=== PATIENT | female | born 1985 | race Caucasian/White ===

== ENCOUNTER 2019-04-24 09:19 | Outpatient (CLI) | payer OTHER, SELFPAY ==
--- NOTE | 2019-04-24 11:00 | NEURO_ITS ---
Patient Number: [id number] Impression: # Complains of pain and discomfort in upper extremities. # Bilateral ulnar neuropathy across the elbows. # Evolving Carpal Tunnel Syndrome. # Normal needle/EMG exam. Nerve Conduction Studies Anti Sensory Summary Table Stim Site NR Peak (ms) P-T Amp (?V) Site1 Site2 Delta-P (ms) Dist (cm) Curt (m/s) Left Median Anti Sensory (2-3nd Digit) Wrist 3.5 74.5 Wrist 2-3nd Digit 3.5 14.0 40 Wrist 3.3 71.5 Wrist 2-3nd Digit 3.5 14.0 40 Right Median Anti Sensory (2-3nd Digit) Wrist 2.9 74.2 Wrist 2-3nd Digit 2.9 14.0 48 Wrist 2.8 69.7 Wrist 2-3nd Digit 2.9 14.0 48 Left Radial Anti Sensory (Base 1st Digit) Wrist 2.0 31.4 Wrist Base 1st Digit 2.0 0.0 Right Radial Anti Sensory (Base 1st Digit) Wrist 2.1 24.6 Wrist Base 1st Digit 2.1 0.0 Left Ulnar Anti Sensory (5th Digit) Wrist 2.6 75.0 Wrist 5th Digit 2.6 14.0 54 Right Ulnar Anti Sensory (5th Digit) Wrist 2.2 60.7 Wrist 5th Digit 2.2 14.0 64 Motor Summary Table Stim Site NR Onset (ms) O-P Amp (mV) Site1 Site2 Delta-0 (ms) Dist (cm) Curt (m/s) Left Median Motor (Abd Poll Brev) Wrist 3.8 1.1 Elbow Wrist 5.2 28.0 54 Elbow 9.0 0.6 Right Median Motor (Abd Poll Brev) Wrist 3.4 4.2 Elbow Wrist 4.9 29.0 59 Elbow 8.3 3.3 Left Ulnar Motor (Abd Dig Minimi) Wrist 2.7 5.1 A Elbow Wrist 6.8 30.0 44 A Elbow 9.5 2.2 B Elbow Wrist 4.6 24.0 52 B Elbow 7.3 6.0 Right Ulnar Motor (Abd Dig Minimi) Wrist 2.5 6.2 A Elbow Wrist 5.9 28.0 47 A Elbow 8.4 4.2 B Elbow Wrist 4.1 23.0 56 B Elbow 6.6 2.6 F Wave Studies NR F-Lat (ms) L-R F-Lat (ms) Left Median (Mrkrs) (Abd Poll Brev) 29.51 1.09 Right Median (Mrkrs) (Abd Poll Brev) 28.43 1.09 Left Ulnar (Mrkrs) (Abd Dig Min) 29.24 0.76 Right Ulnar (Mrkrs) (Abd Dig Min) 28.48 0.76 EMG Side Muscle Nerve Root Ins Act Fibs Amp Dur Recrt Comment Right 1stDorInt Ulnar C8-T1 Nml Nml Nml Nml Nml Right Ext Indicis Radial (Post Int) C7-8 Nml Nml Nml Nml Nml Right Ext Digitorum Radial (Post Int) C7-8 Nml Nml Nml Nml Nml Right BrachioRad Radial C5-6 Nml Nml Nml Nml Nml Right PronatorTeres Median C6-7 Nml Nml Nml Nml Nml Right Abd Poll Brev Median C8-T1 Nml Nml Nml Nml Nml Left 1stDorInt Ulnar C8-T1 Nml Nml Nml Nml Nml Left Ext Indicis Radial (Post Int) C7-8 Nml Nml Nml Nml Nml Left Ext Digitorum Radial (Post Int) C7-8 Nml Nml Nml Nml Nml Left BrachioRad Radial C5-6 Nml Nml Nml Nml Nml Left PronatorTeres Median C6-7 Nml Nml Nml Nml Nml Left Abd Poll Brev Median C8-T1 Nml Nml Nml Nml Nml Right ABD Dig Min Ulnar C8-T1 Nml Nml Nml Nml Nml Left ABD Dig Min Ulnar C8-T1 Nml Nml Nml Nml Nml MTDD
== END 2019-04-24 09:20 | disposition home or self-care (01) ==
PROVIDERS: PCP Family Medicine; Visit Provider Nurse Practitioner
DX: G56.00 Carpal tunnel syndrome, unspecified upper limb (principal); G62.9 Polyneuropathy, unspecified
CPT/HCPCS: 95886; 95911

== ENCOUNTER 2019-11-14 09:00 | Outpatient (RCR) | payer OTHER, SELFPAY ==
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
--- NOTE | 2019-10-24 09:26 | PCPTNOTE ---
Pt called and cancelled c/o in too much pain from last visit.
--- NOTE | 2019-10-31 08:55 | PCPTNOTE ---
Patient called & cancelled scheduled appointment this date due to having to take her son to the MD.
--- NOTE | 2019-11-05 08:53 | PCPTNOTE ---
Pt cancelled appt due to abscessed tooth. On antibiotics now.
--- NOTE | 2019-11-14 11:49 | PTOPEVAL ---
PHYSICAL THERAPY DISCHARGE SUMMARY Thank you for referring Carmelina Quintero to [facility].? Carmelina has been seen x 6 visits in PT with progress towards goals set. She is ready for transitioning to HEP. Will discharge Carmelina from PT at this time. I agree with Carmelina's discharge from PT. Referring Physician Date Admitting Provider: Attending Provider: Steffany Camp, MD Referring Provider: Steffany Camp, MD *PT Outpatient Evaluation Start: 10/18/19 08:14 Freq: Status: Active Protocol: Document 11/14/19 09:11 WENDY (Rec: 11/14/19 10:12 WENDY [email or web address]) Therapy Assessment Status Assessment Status Assessment Status Discharge Evaluation Information Problem Subjective Information Carmelina states that she has Query Text:As Reported By Patient/ purchased hand held massager Family which is really helping her discomfort. In addition, she also has hand held AISM type of device that she can use on sore muscles to help decrease her pain. She states she loves the ball - sits on it all of the time, does her stretches and exercises on it. Pain Assessment Timing of Pain Assessment Timing of Pain Assessment Assessment Pain Scale Pain Scale Used Numeric (1 - 10) Self Report Pain Assessment Lower Back Reported Pain Level 6 Lowest Pain Intensity 4 Greatest Pain Intensity 8 Pain Score Pain Score 6: Self Report Cervical and Lumbar ROM Lumbar ROM Lumbar Comments pelvis/sacrum level in standing, negative standing flexion test Palpation Assessment Palpation Palpation increase in trigger points/ tissue tension - lateral and anterior/lateral thighs and buttocks Increased tenderness with P-A mob to sacrum - symmetrical alignment present. General Exercise General Exercises Exercise Location core, hip Exercise Type Active Exercise Description 75 cm ball Query Text:Record Sets, Reps, - pelvic motions - side/side, Resistance, and Position front/back, CW/CCW - 15 reps ea - LAQ - 15 reps - improved stability - marching with over head punch - 15 reps - increased
== END 2020-01-01 12:51 | disposition home or self-care (01) ==
LOC: ANHPT 09:00
PROVIDERS: PCP Family Medicine; Referring Provider Family Medicine; Visit Provider Family Medicine
DX: M54.9 Dorsalgia, unspecified (principal)
CPT/HCPCS: 97014; 97110; 97140; 97162; G0283

== ENCOUNTER 2021-02-26 12:32 | Emergency (ER) | payer OTHER, SELFPAY ==
--- NOTE | ~2021-02-26 | XR_ITS ---
EXAMINATION: XR chest 2V DATE: 02/26/2021 13:14 INDICATION: Cough. TECHNIQUE: Frontal and lateral views of the chest were obtained. COMPARISON: Chest 2 views 12/12/2018 FINDINGS: The chest demonstrates clear lungs without pneumonia, pleural effusion, or pneumothorax. Th e heart size is normal. There is mild chronic anterior wedging of vertebral bodies at thoracolumbar j unction. There is internal fixation of left humerus. IMPRESSION: 1. No acute cardiopulmonary disease. Reviewed, dictated and finalized at location A. [facility]
[2021-02-26 12:43] VITALS: BP 123/77; PULSE 84; RESP 16; TEMP 35.8; O2SAT 95
--- NOTE | 2021-02-26 12:54 | ED.URI ---
HPI - URI/Sore Throat General Chief Complaint: Upper Respiratory Infection Stated Complaint: Cough Time Seen by Provider: 02/26/21 12:54 Source: patient, RN notes reviewed and old records reviewed History of Present Illness HPI Narrative: 35-year-old female presents to the [facility] with complaints of cough, sore throat, runny nose and chills. Patient states today is day 3. The cough however did not start until last night. Denies any chest pain or abdominal pain. No nausea vomiting or diarrhea. Related Data Home Medications Medication Instructions Recorded Confirmed duloxetine 60 mg PO DAILY 05/08/19 02/26/21 escitalopram oxalate 20 mg PO DAILY 05/08/19 02/26/21 losartan 100 mg PO DAILY 05/08/19 02/26/21 medroxyprogesterone 150 mg IM Q3M 05/08/19 02/26/21 phentermine 37.5 mg PO DAILY 05/08/19 02/26/21 pregabalin 50 mg PO BID 05/08/19 02/26/21 topiramate 50 mg PO BID 05/08/19 02/26/21 bupropion HCl 300 mg PO DAILY 02/26/21 02/26/21 cyanocobalamin (vitamin B-12) 1,000 mcg IM WEEKLY 02/26/21 02/26/21 dulaglutide [Trulicity] 3 mg SUBCUT DIRECTED 02/26/21 02/26/21 ergocalciferol (vitamin D2) 1,250 mcg PO DAILY 02/26/21 02/26/21 hydrochlorothiazide 25 mg PO DAILY 02/26/21 02/26/21 hydrocodone-acetaminophen 1 tablet PO DAILY 02/26/21 02/26/21 ibuprofen 800 mg PO DAILY 02/26/21 02/26/21 montelukast 10 mg PO DAILY 02/26/21 02/26/21 pantoprazole 40 mg PO DAILY 02/26/21 02/26/21 potassium chloride 20 meq PO DAILY 02/26/21 02/26/21 Allergies Allergy/AdvReac Type Severity Reaction Status Date / Time No Known Allergies Allergy Unknown Unverified 02/26/21 13:00 Review of Systems Constitutional: Constitutional: Reports as per HPI, Reports chills and Denies fever(s) Eyes: Eyes: Reports no additional eye complaints ENT: Reports as per HPI, Reports nasal congestion and Reports sore throat Cardiovascular: Cardiovascular: Reports no additional cardiovascular complaints and Denies chest pain Respiratory: Respiratory: Reports as per HPI, Reports cough (Started last night), Denies dyspnea and Denies wheezing Gastrointestinal: Gastrointestinal: Reports no additional gastrointestinal complaints, Denies abdominal pain, Denies nausea and Denies vomiting Musculoskeletal: Musculoskeletal: Reports no additional musculoskeletal complaints Integumentary/Breasts: Skin/Breast: Reports system reviewed and no additional complaints, except as docu Neurologic: Reports system reviewed and no additional complaints, except as documented Psychiatric: Psychiatric: Reports no additional psychiatric complaints Allergic/Immunologic: Allergic/Immunologic: Reports no additional allergic/immunologic complaints PMFSH Past Medical History Medical History (Updated 02/26/21 @ 19:26 by Yashira Douglas) No significant medical problems Surgical History Surgical History (Updated 02/26/21 @ 19:24 by Yashira Douglas) No pertinent past surgical history Social History Social History (Updated 02/26/21 @ 19:24 by Yashira Douglas) Gender identity (if verbalized by the patient): Female Comments Discharge instructions reviewed with patient, as well as provided in writing per nursing staff. The instructions also include specific and strict return/GO TO THE ER as well as f/u information. All questions have been answered, and the patient deny any further questions with discharge and discharge plan. Exam Const: General: healthy appearing, no acute distress and alert Nutritional Appearance: well nourished and obese Orientation/consciousness: patient oriented x3 Limitations: no limitations HENMT: Head: normal to inspection Ears: external ears normal, TM's normal bilaterally and EAC's normal Eyes: Conjunctivae: conjunctivae normal Pupils: Equal, round and reactive pupils present Neck: Neck: normal visual inspection, no lymphadenopathy and no meningeal signs Chest: Chest palpation & inspection: normal inspection of the chest Resp: Effort & Inspecti
== END 2021-02-26 13:44 | disposition home or self-care (01) ==
PROVIDERS: Emergency Provider Nurse Practitioner; PCP Family Medicine
DX: J40 Bronchitis, not specified as acute or chronic (principal); J06.9 Acute upper respiratory infection, unspecified; Z20.822 Contact with and (suspected) exposure to COVID-19; Z79.891 Long term (current) use of opiate analgesic; Z79.1 Long term (current) use of non-steroidal anti-inflammatories (NSAID)
CPT/HCPCS: 71046; 87804; 99213; G0463

== ENCOUNTER → 2021-03-02 02:12 | Outpatient (CLI) | payer OTHER, SELFPAY ==
[2021-03-03 14:39] LABS: SARS-CoV-2 RNA PCR Positive
== END ==
PROVIDERS: PCP Family Medicine; Visit Provider Nurse Practitioner
DX: U07.1 COVID-19 (principal); J06.9 Acute upper respiratory infection, unspecified
CPT/HCPCS: C9803; U0003; U0005